=== PATIENT | male | born 1960 | race Asian ===

== ENCOUNTER → 2016-03-05 | Outpatient (CLI) | payer OTHER ==
--- NOTE | 2016-03-05 10:26 | XCELERA REPORT ---
[address] [address] Lower Extremity Arterial Evaluation Name: MIS MCKEON Age: 55 yrs Gender: Male : 1960 Patient Status: Outpatient Patient Location: Study Date: 03/05/2016 08:19 AM Procedure: A color flow and duplex scan of the lower extremity arteries was performed bilaterally with velocity and waveform anaylsis. Ankle brachial indicies performed. Reason For Study: ULCER Ordering Physician: ELPIDIO MARIA Performed By: Tristian Wahl Measurements and Calculations Right Left SAFETY PERSON PSV 161.1 125.7 cm/sec Prox PFA PSV -169.9 -189.7 cm/sec Dist SFA PSV -175.8 -168.4 cm/sec Prox Pop A PSV 145.8 111.6 cm/sec Dist HANG PSV 73.9 83.4 cm/sec Dist SR. OPERATIONS MANAGER PSV 73.9 96.2 cm/sec Fred Pedis PSV 80.8 98.7 cm/sec Right Side Arterial Evaluation Normal velocity, waveform and triphasic flow are present, from the Common Femoral artery to the Popliteal artery. Biphasic in the Deep Femoral. Biphasic in the infrageniculate vessels. The ankle-brachial index is not obtainable,. non compressible vessels. 0-19 % stenosis is noted at the infrageniculate level. Left Side Arterial Evaluation Normal velocity, waveform and triphasic flow are present, from the Common Femoral artery down to the infrageniculate vessels. The ankle-brachial index is 1.17. 0 % stenosis is noted. Interpretation Summary Mild hemodynamically significant lesions in the right lower extremity only, on duplex imaging, at rest. No hemodynamically significant lesions in the left lower extremity only, on duplex imaging, at rest. : ELPIDIO MARIA > Jarred Tirado
--- NOTE | 2016-03-05 10:26 | XCELERA REPORT ---
[address] [address] Lower Extremity Venous Evaluation Name: MIS MCKEON Age: 55 yrs Gender: Male : 1960 Patient Status: Outpatient Patient Location: Study Date: 03/05/2016 08:32 AM Procedure: Color flow and duplex imaging bilaterally of the veins of the lower extremities as well as the Common Femoral veins. Reason For Study: ULCER Ordering Physician: ELPIDIO MARIA Performed By: Tristian Wahl Right Sided Venous Evaluation Normal velocity, waveform and triphasic flow are present, from the Common Femoral artery to the Popliteal artery. Biphasic in the Deep Femoral. Biphasic in the infrageniculate vessels. The ankle-brachial index is not obtainable,. non compressible vessels. 20-49 % stenosis is noted at the infrageniculate level. Left Sided Venous Evaluation Normal velocity, waveform and triphasic flow are present, from the Common Femoral artery down to the infrageniculate vessels. The ankle-brachial index is 1.17. 0 % stenosis is noted. Interpretation Summary : ELPIDIO MARIA > Jarred Tirado
== END ==
LOC: SP 08:01
PROVIDERS: ATTEND Preventive Medicine Undersea and Hyperbaric Medicine
DX: I73.9 Peripheral vascular disease, unspecified (principal); L97.423 Non-pressure chronic ulcer of left heel and midfoot with necrosis of muscle
CPT/HCPCS: 93925; 93970

== ENCOUNTER 2018-12-29 15:27 | Inpatient (IN) | payer SELFPAY ==
--- NOTE | 2018-12-29 15:37 | ER Document Report ---
ED Medical Screen (RME) - General Chief Complaint: High Blood Sugar Stated Complaint: BLOOD SUGAR ISSUES Time Seen by Provider: 12/29/18 15:32 Primary Care Provider: RICARDO FUENTES MD [Primary Care Provider] - Follow up as needed Mode of Arrival: Wheelchair Information source: Relative Notes: 58-year-old male presented to ED for high blood sugar. He went to his primary doctor and his blood sugar was 520. They did send him to the emergency room. Daughter states he has been very thirsty and urinating a lot and very fatigued. Patient does not speak Trinidadian. Patient has been on insulin for 3 days and also takes metformin. He also has high blood pressure. He smokes 5 cigarettes a day he has not drank in 3 years. Daughter states that the doctor's office gave him 20 units of regular insulin some blood pressure medicine. I have greeted and performed a rapid initial assessment of this patient. A comprehensive ED assessment and evaluation of the patient, analysis of test results and completion of medical decision making process will be conducted by an additional ED providers. TRAVEL OUTSIDE OF THE [place] IN LAST 30 DAYS: No - Related Data Allergies/Adverse Reactions: No Known Allergies Allergy (Unverified 10/13/14 20:44) Past Medical History - Past Medical History Cardiac Medical History: Reports: Hx Hypertension Endocrine Medical History: Reports: Hx Diabetes Mellitus Type 2 Psychiatric Medical History: Denies: Hx Depression Doctor's Discharge - Discharge Referrals: RICARDO FUENTES MD [Primary Care Provider] - Follow up as needed
[2018-12-29] MEDS ORDERED: NORMAL SALINE 1000 ML 1,000 ML IV ONE ×2 (15:38→20:05)
[2018-12-29 16:15] LABS: ABSOLUTE BASOPHILS # (AUTO) 0.1 10^3/uL (0.0-0.2); ABSOLUTE EOSINOPHILS # (AUTO) 0.1 10^3/uL (0.0-0.6); ABSOLUTE LYMPHOCYTES (AUTO) 1.1 10^3/uL (0.5-4.7); ABSOLUTE MONOCYTES (AUTO) 0.2 10^3/uL (0.1-1.4); ABSOLUTE NEUT (AUTO) 4.2 10^3/uL (1.7-8.2); EOSINOPHILS % (AUTO) 1.8 % (0-6); HEMATOCRIT 44.4 % (37.9-51.0); HEMOGLOBIN 15.3 g/dL (13.5-17.0); LYMPHOCYTES % (AUTO) 19.6 % (13-45); MEAN CORPUSCULAR HEMOGLOBIN 28.7 pg (27.0-33.4); MEAN CORPUSCULAR HGB CONC 34.5 g/dL (32.0-36.0); MEAN CORPUSCULAR VOLUME 83 fl (80-97); MONOCYTES % (AUTO) 4.1 % (3-13); PLATELET COUNT 228 10^3/uL (150-450); RED BLOOD COUNT 5.33 10^6/uL (4.35-5.55); RED CELL DISTRIBUTION WIDTH 13.6 % (11.5-14.0); SEGMENTED NEUTROPHILS % (AUTO) 73.5 % (42-78); TOTAL CELLS COUNTED % (AUTO) 100 %; WHITE BLOOD COUNT 5.7 10^3/uL (4.0-10.5)
[2018-12-29 16:27] LABS: VENOUS BLOOD BASE EXCESS 1.1 mmol/L; VENOUS BLOOD HCO3 27.7 mmol/L (20-32); VENOUS BLOOD PCO2 51.1 mmHg (35-63); VENOUS BLOOD PH 7.35 (7.30-7.42)
[2018-12-29 16:47] LABS: PHOSPHORUS 3.1 mg/dL (2.5-4.5)
--- NOTE | 2018-12-29 17:16 | RADIOLOGY REPORT (SQ) ---
EXAM DESCRIPTION: CT HEAD WITHOUT COMPLETED DATE/TIME: 12/29/2018 4:41 pm REASON FOR STUDY: recrudence dysarthria hemiparesis COMPARISON: None. TECHNIQUE: Axial images acquired through the brain without intravenous contrast. Images reviewed wi th bone, brain and subdural windows. Additional sagittal and coronal reconstructions were generated. Images stored on PACS. All CT scanners at this facility use dose modulation, iterative reconstruction, and/or weight based d osing when appropriate to reduce radiation dose to as low as reasonably achievable (ALARA). [facility]: Dose Right [facility]: CareDose [facility]: Dose Right [facility]: Teradose 4D [facility]: Smart Cellcrypt RADIATION DOSE: CT Rad equipment meets quality standard of care and radiation dose reduction techniq ues were employed. CTDIvol: 53.2 mGy. DLP: 1097 mGy-cm. mGy. LIMITATIONS: None. FINDINGS: VENTRICLES: Normal size and contour. CEREBRUM: Ill-defined low attenuation in the right posterior internal capsule/posterior basal ganglia worrisome for acute or early subacute infarct. This is best shown on axial images 17-20. No acute hemorrhage. No mass effect or midline shift. CEREBELLUM: No masses. No hemorrhage. No alteration of density. No evidence for acute infarction. EXTRAAXIAL SPACES: No fluid collections. No masses. ORBITS AND GLOBE: No intra- or extraconal masses. Normal contour of globe without masses. CALVARIUM: No fracture. PARANASAL SINUSES: Mucus or serous retention cyst right maxillary sinus. Mucous membrane thickening and debris from sinusitis left maxillary sinus SOFT TISSUES: No mass or hematoma. OTHER: No other significant finding. IMPRESSION: Findings worrisome for acute or early subacute infarct in the right posterior limb inter nal capsule/posterior basal ganglia extending into the hemispheric white matter. Nonhemorrhagic. No mass effect. EVIDENCE OF ACUTE STROKE: YES. COMMENT: Quality ID # [id number]: Final reports with documentation of one or more dose reduction techniques (e.g., Automated exposure control, adjustment of the mA and/or kV according to patient size, use of iterative reconstruction technique) TECHNICAL DOCUMENTATION: JOB ID: [id number] [employer]- All Rights Reserved Reading location - IP/workstation name: [email or web address]
[2018-12-29] MEDS ORDERED: ASPIRIN 81 MG TABLET, CHEWABLE ONE (17:17)
--- NOTE | 2018-12-29 17:20 | RADIOLOGY REPORT (SQ) ---
EXAM DESCRIPTION: CHEST 2 VIEWS COMPLETED DATE/TIME: 12/29/2018 4:52 pm REASON FOR STUDY: h/o aspiration COMPARISON: 02/09/2016 EXAM PARAMETERS: NUMBER OF VIEWS: two views TECHNIQUE: Digital Frontal and Lateral radiographic views of the chest acquired. RADIATION DOSE: NA LIMITATIONS: none FINDINGS: LUNGS AND PLEURA: No opacities, masses or pneumothorax. No pleural effusion. MEDIASTINUM AND HILAR STRUCTURES: No masses or contour abnormalities. HEART AND VASCULAR STRUCTURES: Heart normal size. No evidence for failure. BONES: No acute findings. HARDWARE: None in the chest. OTHER: No other significant finding. IMPRESSION: No evidence of acute cardiopulmonary process. TECHNICAL DOCUMENTATION: JOB ID: [id number] [employer]- All Rights Reserved Reading location - IP/workstation name: [email or web address]
[2018-12-29 17:35] LABS: ALBUMIN 3.7 g/dL (3.5-5.0); ALKALINE PHOSPHATASE 100 U/L (38-126); ANION GAP 10 (5-19); ASPARTATE AMINO TRANSFERASE 18 U/L (17-59); BILIRUBIN,DIRECT 0.1 mg/dL (0.0-0.4); BILIRUBIN,TOTAL 0.5 mg/dL (0.2-1.3); BLOOD UREA NITROGEN 19 mg/dL (7-20); CALCIUM 9.4 mg/dL (8.4-10.2); CARBON DIOXIDE 23 mmol/L (22-30); CHLORIDE 103 mmol/L (98-107); GLUCOSE 364 mg/dL (75-110); TOTAL PROTEIN 6.6 g/dL (6.3-8.2)
[2018-12-29] MEDS ORDERED: ASPIRIN 81 MG TABLET, CHEWABLE PO ONE (18:01)
[2018-12-29] MEDS ORDERED: DEXTROSE 50%-WATER 25 GM/50 ML DISP.SYRIN IV PRN ×2 (20:05)
[2018-12-29] MEDS ORDERED: ATORVASTATIN CALCIUM 80 MG TABLET PO ONE (20:05)
[2018-12-29] MEDS ORDERED: GLUCAGON,HUMAN RECOMB 1 MG INJ IM PRN (20:05)
[2018-12-29] MEDS ORDERED: DEXTROSE 40% GEL 15 GM TUBE PO PRN ×2 (20:05)
[2018-12-29] MEDS ORDERED: ACETAMINOPHEN 325 MG TABLET PO PRN (20:06)
[2018-12-29] MEDS ORDERED: MAGNESIUM HYDROXIDE SUSP 30 ML UDCUP PO PRN (20:06)
[2018-12-29] MEDS ORDERED: DOCUSATE SODIUM 100 MG CAPSULE PO PRN (20:06)
--- NOTE | 2018-12-29 20:06 | ER Document Report ---
ED General - General Chief Complaint: High Blood Sugar Stated Complaint: BLOOD SUGAR ISSUES Time Seen by Provider: 12/29/18 15:32 Primary Care Provider: RICARDO FUENTES MD [Primary Care Provider] - Follow up as needed Mode of Arrival: Wheelchair TRAVEL OUTSIDE OF THE [place] IN LAST 30 DAYS: No - Related Data Allergies/Adverse Reactions: No Known Allergies Allergy (Unverified 10/13/14 20:44) Past Medical History - General Information source: Relative - Social History Smoking Status: Unknown if Ever Smoked Family History: Reviewed & Not Pertinent Patient has suicidal ideation: No Patient has homicidal ideation: No - Past Medical History Cardiac Medical History: Reports: Hx Hypertension Endocrine Medical History: Reports: Hx Diabetes Mellitus Type 2 Psychiatric Medical History: Denies: Hx Depression Physical Exam - Vital signs Vitals: Temp Pulse Resp BP Pulse Ox 97.3 F 109 H 16 139/74 H 98 12/29/18 15:30 12/29/18 15:30 12/29/18 15:30 12/29/18 15:30 12/29/18 15:30 Course - Vital Signs Vital signs: Temp Pulse Resp BP Pulse Ox 97.5 F 109 H 16 103/53 L 97 12/29/18 18:30 12/29/18 15:30 12/29/18 19:45 12/29/18 19:45 12/29/18 19:45 - Laboratory Result Diagrams: 12/29/18 16:00 12/29/18 16:00 Laboratory results interpreted by me: 12/29/18 12/29/18 12/29/18 15:56 16:00 16:00 Sodium 136.0 L Creatinine 1.35 H Est GFR (MDRD) Non-Af 55 L Glucose 364 H POC Glucose 398 H Magnesium 2.6 H 12/29/18 18:19 Sodium Creatinine Est GFR (MDRD) Non-Af Glucose POC Glucose 156 H Magnesium Discharge - Discharge Clinical Impression: Hyperglycemia Stroke Qualifiers: CVA mechanism: unspecified Qualified Code(s): I63.9 - Cerebral infarction, unspecified Disposition: ADMITTED INPATIENT Admitting Provider: Rudy (Hospitalist) Unit Admitted: IMCU Referrals: RICARDO FUENTES MD [Primary Care Provider] - Follow up as needed
[2018-12-30] MEDS ORDERED: INFLUENZA QUAD (6MOS+) 2019-20 VAC 0.5 ML SYR IM ONE (02:10)
[2018-12-30 04:06] LABS: APPEARANCE,URINE CLEAR; BILIRUBIN,URINE NEGATIVE (NEGATIVE); COLOR,URINE YELLOW; GLUCOSE, URINE >=500 mg/dL (NEGATIVE); KETONES,URINE TRACE mg/dL (NEGATIVE); LEUKOCYTE ESTERASE,URINE NEGATIVE (NEGATIVE); NITRITE,URINE NEGATIVE (NEGATIVE); PROTEIN,URINE >=500 mg/dL (NEGATIVE); URINE SPECIFIC GRAVITY 1.029; UROBILINOGEN,URINE NEGATIVE mg/dL (<2.0)
--- NOTE | 2018-12-30 04:26 | PDOC H&P ---
History of Present Illness Admission Date/PCP: 12/29/18 20:20 RICARDO FUENTES MD Patient complains of: Right-sided weakness and cough History of Present Illness: MIS MCKEON is a 58 year old mandrin German speaking male with a past medical history of diabetes, hypertension, dyslipidemia and CVA with residual left-sided weakness. He presents with over 12 hours of increased left-sided weakness from baseline and a cough while eating or drinking. Patient's daughter is at bedside who translates and verifies he is essentially bedbound over the last 2 years able to transfer from bed to commode with baseline debility. No recent change in medications, palpitations nausea or vomiting but has had several days of headache. Past Medical History Cardiac Medical History: Reports: Hyperlipidema, Hypertension Neurological Medical History: Reports: Ischemic CVA Endocrine Medical History: Reports: Diabetes Mellitus Type 2 Psychiatric Medical History: Reports: Tobacco Dependency Denies: Depression Social History Information Source: Patient, Relative, [facility] Records Smoking Status: Current Every Day Smoker Frequency of Alcohol Use: Rare Hx Recreational Drug Use: No Hx Prescription Drug Abuse: No - Advance Directive Resuscitation Status: Full Code Family History Family History: CAD Parental Family History Reviewed: Yes Children Family History Reviewed: Yes Sibling(s) Family History Reviewed.: Yes Medication/Allergy Home Medications: Dapagliflozin Propanediol [Farxiga] 5 mg PO DAILY 12/29/18 Gabapentin [Neurontin 100 mg Capsule] 100 mg PO Q8 12/29/18 Hum Insulin NPH/Reg Insulin Hm [Insulin Inj 70-30 (100 Unit/1 ml) 3 ml Vial] 0 unit SUBCUT .SLIDING SCALE 12/29/18 Levothyroxine Sodium [Synthroid 0.075 mg Tablet] 0.075 mg PO Q6AM 12/29/18 Allergies/Adverse Reactions: No Known Allergies Allergy (Unverified 10/13/14 20:44) Review of Systems Constitutional: ABSENT: chills, fever(s), headache(s), weight gain, weight loss Eyes: ABSENT: visual disturbances Ears: ABSENT: hearing changes Cardiovascular: ABSENT: chest pain, dyspnea on exertion, edema, orthropnea, palpitations Respiratory: ABSENT: cough, hemoptysis Gastrointestinal: ABSENT: abdominal pain, constipation, diarrhea, hematemesis, hematochezia, nausea, vomiting Genitourinary: ABSENT: dysuria, hematuria Musculoskeletal: ABSENT: joint swelling Integumentary: ABSENT: rash, wounds Neurological: ABSENT: abnormal gait, abnormal speech, confusion, dizziness, focal weakness, syncope Psychiatric: ABSENT: anxiety, depression, homidical ideation, suicidal ideation Endocrine: ABSENT: cold intolerance, heat intolerance, polydipsia, polyuria Hematologic/Lymphatic: ABSENT: easy bleeding, easy bruising Physical Exam Vital Signs: Temp Pulse Resp BP Pulse Ox 97.5 F 64 16 167/75 H 97 12/30/18 03:44 12/30/18 03:44 12/30/18 03:44 12/30/18 03:44 12/30/18 03:44 Intake & Output 12/28/18 12/29/18 12/30/18 11:59 11:59 11:59 Intake Total 1999 Balance 1999 Weight 83.915 kg General appearance: PRESENT: cooperative, severe distress, well-developed, well- nourished Head exam: PRESENT: atraumatic, normocephalic Eye exam: PRESENT: conjunctiva pink, EOMI, PERRLA. ABSENT: scleral icterus Ear exam: PRESENT: normal external ear exam Mouth exam: PRESENT: moist, tongue midline Neck exam: ABSENT: carotid bruit, JVD, lymphadenopathy, thyromegaly Respiratory exam: PRESENT: crackles, decreased breath sounds Cardiovascular exam: PRESENT: RRR. ABSENT: diastolic murmur, rubs, systolic murmur Pulses: PRESENT: normal dorsalis pedis pul Vascular exam: PRESENT: normal capillary refill GI/Abdominal exam: PRESENT: normal bowel sounds, soft. ABSENT: distended, guarding, mass, organolmegaly, rebound, tenderness Rectal exam: PRESENT: deferred Extremities exam: PRESENT: full ROM, other - Chronic change of peripheral vascular disease. ABSENT: calf tenderness, clubbing, pedal edema Musculoskeletal exam: PRESENT: other - Left-sided 4 out of 5 strength Neurological exam: PRESENT: alert, awake, oriented to person, oriented to place, CN II-XII grossly intact Psychiatric exam: PRESENT: appropriate affect, normal mood. ABSENT: homicidal ideation, suicidal ideation Skin exam: PRESENT: dry, intact, warm. ABSENT: cyanosis, rash Results Laboratory Results: 12/29/18 16:00 12/29/18 16:00 12/29/18 12/29/18 12/29/18 16:00 16:00 16:00 WBC 5.7 RBC 5.33 Hgb 15.3 Hct 44.4 MCV 83 MCH 28.7 MCHC 34.5 RDW 13.6 Plt Count 228 Seg Neutrophils % 73.5 VBG pH 7.35 VBG pCO2 51.1 VBG HCO3 27.7 VBG Base Excess 1.1 Sodium 136.0 L Potassium 4.0 Chloride 103 Carbon Dioxide 23 Anion Gap 10 BUN 19 Creatinine 1.35 H Est GFR ( Amer) > 60 Glucose 364 H Calcium 9.4 Phosphorus Magnesium Total Bilirubin 0.5 AST 18 Alkaline Phosphatase 100 Total Protein 6.6 Albumin 3.7 Urine Color Urine Appearance Urine pH Ur Specific [place] Urine Protein Urine Glucose (UA) Urine Ketones Urine Blood Urine Nitrite Ur Leukocyte Esterase Urine WBC (Auto) Urine RBC (Auto) 12/29/18 12/30/18 16:00 03:45 WBC RBC Hgb Hct MCV MCH MCHC RDW Plt Count Seg Neutrophils % VBG pH VBG pCO2 VBG HCO3 VBG Base Excess Sodium Potassium Chloride Carbon Dioxide Anion Gap BUN Creatinine Est GFR ( Amer) Glucose Calcium Phosphorus 3.1 Magnesium 2.6 H Total Bilirubin AST Alkaline Phosphatase Total Protein Albumin Urine Color YELLOW Urine Appearance CLEAR Urine pH 5.0 Ur Specific [place] 1.029 Urine Protein >=500 H Urine Glucose (UA) >=500 H Urine Ketones TRACE H Urine Blood MODERATE H Urine Nitrite NEGATIVE Ur Leukocyte Esterase NEGATIVE Urine WBC (Auto) 3 Urine RBC (Auto) 4 12/29/18 12/29/18 16:00 19:30 Troponin I < 0.012 0.014 Impressions: Chest X-Ray 12/29/18 16:21 IMPRESSION: No evidence of acute cardiopulmonary process. Head CT 12/29/18 16:23 IMPRESSION: Findings worrisome for acute or early subacute infarct in the right posterior limb internal capsule/posterior basal ganglia extending into the hemispheric white matter. Nonhemorrhagic. No mass effect. EVIDENCE OF ACUTE STROKE: YES. Assessment and Plan - Diagnosis (1) Stroke Qualifiers: CVA mechanism: unspecified Qualified Code(s): I63.9 - Cerebral infarction, unspecified Is this a current diagnosis for this admission?: Yes Plan: CVA care set deployed complicated by unsafe swallow, follow-up MRI, carotid Doppler, 2D echo, lipid profile. Speech, physical therapy (2) Hyperglycemia Is this a current diagnosis for this admission?: Yes Plan: Unclear glycemic control, follow-up A1c, Humalog sliding scale ordered while n.p.o. (3) Dyslipidemia Is this a current diagnosis for this admission?: Yes Plan: Follow-up lipid profile, statin when safely swallowing (4) Tobacco abuse Is this a current diagnosis for this admission?: Yes Plan: Nicotine patch PRN - Time Time Spent with patient: 25-34 minutes - Inpatient Certification Medical Necessity: Need Close Monitoring Due to Risk of Patient Decompensation
[2018-12-30 05:07] LABS: TRIGLYCERIDES 410 mg/dL (<150)
[2018-12-30 05:17] LABS: CHOLESTEROL 433.51 mg/dL (0-200); DIRECT LDL 202 mg/dL (<100)
[2018-12-30] MEDS: HEPARIN SOD (PORCINE) 5,000 UNIT/ML 1 ML VIAL SUBCUT SCH ×4 (07:36→22:46)
--- NOTE | 2018-12-30 08:16 | RADIOLOGY REPORT (SQ) ---
EXAM DESCRIPTION: CAROTID DOPPLER COMPLETED DATE/TIME: 12/29/2018 9:41 pm REASON FOR STUDY: cva COMPARISON: None. TECHNIQUE: Grayscale ultrasound, Doppler velocity and spectra, and color Doppler images acquired of the extra-cranial carotid and vertebral arteries. Images stored on PACS. LIMITATIONS: None. FINDINGS: RIGHT CAROTID CCA Velocities: Within normal limits. ICA Velocities Peak systolic 62 cm/s. End diastolic 17 cm /s. Proximal ICA/CCA peak systolic ratio 1.0. Minimal soft plaque. LEFT CAROTID CCA Velocities: Within normal limits. ICA Velocities Peak systolic 64 cm/s. End diastolic 21 cm/s. Proximal ICA/CCA peak systolic ratio 0.8. Minimal soft plaque. VERTEBRAL ARTERIES: Antegrade flow. Normal waveforms. SUBCLAVIAN ARTERIES: No finding. OTHER: No other significant finding. IMPRESSION: NO HEMODYNAMICALLY SIGNIFICANT STENOSIS. COMMENT: Quality ID #[id number]: Velocity criteria are extrapolated from the diameter data as defined by t he Society of Radiologists in Ultrasound Consensus Conference. Radiology 2003: 229; 340-346. TECHNICAL DOCUMENTATION: JOB ID: [id number] [employer]- All Rights Reserved Reading location - IP/workstation name: [email or web address]
--- NOTE | 2018-12-30 08:18 | RADIOLOGY REPORT (SQ) ---
EXAM DESCRIPTION: MRI HEAD WITHOUT COMPLETED DATE/TIME: 12/29/2018 11:05 pm REASON FOR STUDY: cva COMPARISON: CT brain, 12/29/2018 TECHNIQUE: Multiplanar imaging includes non-contrasted T1, T2, FLAIR, and diffusion with ADC map seq uences. Images stored on PACS. LIMITATIONS: Motion artifact. FINDINGS: ANATOMY: No anomalies. Normal vascular flow voids. Pituitary fossa normal. CSF SPACES: Normal in size and contour. No hemorrhage. CEREBRUM: Sulci and gyri normal in size and contour. Normal white matter signal on FLAIR imaging. No evidence of hemorrhage, mass, or extraaxial fluid collection. POSTERIOR FOSSA: No signal alteration. No hemorrhage. No edema, masses or mass effect. Internal danielle tory canals, cerebello-pontine angles, mastoids normal. DIFFUSION IMAGING: There is an acute diffusion restricting infarction of the posterior right basal ga nglia involving the posterior limb of the right internal capsule and adjacent morales radiata (series 4, image 15). There may be an additional small subacute infarction of the right frontal morales radia ta more anteriorly (series 4, image 20). ORBITS: No masses. Globes normal. PARANASAL SINUSES: No fluid levels. Mucosa normal. OTHER: No other significant finding. IMPRESSION: 1. There is an acute diffusion restricting infarction of the posterior right basal gangl ia involving the posterior limb of the right internal capsule and adjacent morales radiata (series 4, image 15). There may be an additional small subacute infarction of the right frontal morales radiata m ore anteriorly (series 4, image 20). 2. Examination is generally somewhat limited by patient motion artifact EVIDENCE OF ACUTE STROKE: YES. TECHNICAL DOCUMENTATION: JOB ID: [id number] [employer]- All Rights Reserved Reading location - IP/workstation name: [email or web address]
[2018-12-30] MEDS: INSULIN LISPRO 100 UNIT/ML 3 ML VIAL SUBCUT SCH ×3 (08:44→16:17)
[2018-12-30] MEDS ORDERED: ASPIRIN 300 MG SUPP, RECTAL PR SCH (10:00)
[2018-12-30] MEDS: ASPIRIN 81 MG TABLET, ENT COATED PO SCH (11:47)
--- NOTE | 2018-12-30 11:59 | XCELERA REPORT ---
[address] [address] Transthoracic Echocardiogram Report Name: MIS MCKEON Age: 58 yrs Gender: Male : 1960 Patient Status: Emergency Patient Location: [place] [address]^A Study Date: 12/29/2018 08:28 PM Height: 70 in Weight: 185 lb BSA: 2.0 m2 Procedure: A two-dimensional transthoracic echocardiogram with color flow and Doppler was performed. The study was technically limited with all images being suboptimal in quality. Reason For Study: cva History: CVA. Ordering Physician: RICARDO DAVIS Performed By: Paulette Cortes Interpretation Summary There is no obvious cardiac source of embolus noted on this transthoracic echocardiogram. Follow-up with a BERNABE is suggested if cardiac source is still suspected. The left ventricle is normal in size. There is normal left ventricular wall thickness. LV EF is 50% Left ventricular systolic function is mildly reduced. Doppler measurements suggest impaired left ventricular relaxation, which is associated with grade I/IV or mild diastolic dysfunction There is mild global hypokinesis of the left ventricle. There is no thrombus. cannot comment on ASD ,VSD , or PFO. The right atrium is normal. The left atrial size is normal. There is no evidence of mitral valve prolapse. There is no vegetation seen on the mitral valve. There is no mitral valve stenosis. There is a trace amount of mitral regurgitation There is no aortic valvular vegetation. There is no aortic valve stenosis There is no LVOT obstruction. No aortic regurgitation is present. There is no tricuspid stenosis. There is a trace amount of tricuspid regurgitation Right ventricular systolic pressure is normal. RVSp is 28 mm of Hg , with RA mean of 10. There is no pulmonic valvular stenosis. There is a trace amount of pulmonic regurgitation The aortic root is normal size. The inferior vena cava was not visualized There is no pericardial effusion. There is no obvious cardiac source of embolus noted on this transthoracic echocardiogram. Follow-up with a BERNABE is suggested if cardiac source is still suspected MMode/2D Measurements & Calculations RVDd: 2.4 cm LVIDd: 4.5 cm FS: 25.1 % Ao root diam: 3.0 cm IVSd: 1.3 cm LVIDs: 3.4 cm EDV(Teich): Ao root area: LVPWd: 1.3 cm 93.6 ml 7.3 cm2 ESV(Teich): LA dimension: 3.8 cm 47.0 ml EF(Teich): 49.8 % LVLd ap4: 7.0 cm SV(MOD-sp4): EDV(MOD-sp4): 31.0 ml 56.0 ml LVLs ap4: 6.5 cm ESV(MOD-sp4): 25.0 ml EF(MOD-sp4): 55.4 % Doppler Measurements & Calculations MV E max katlyn: MV P1/2t max katlyn: Ao V2 max: LV V1 max P.8 cm/sec 59.2 cm/sec 100.1 cm/sec 2.8 mmHg MV A max katlyn: MV P1/2t: 62.7 msec Ao max PG: LV V1 max: 65.1 cm/sec MVA(P1/2t): 3.5 cm2 4.0 mmHg 84.3 cm/sec MV E/A: 0.83 MV dec slope: 276.5 cm/sec2 MV dec time: 0.21 sec PA V2 max: PI end-d katlyn: TR max katlyn: MV P1/2t-pr_phl: 107.2 cm/sec 100.4 cm/sec 211.8 cm/sec 62.7 msec PA max PG: TR max P.6 mmHg 17.9 mmHg Left Ventricle The left ventricle is normal in size. There is normal left ventricular wall thickness. LV EF is 50%. Left ventricular systolic function is mildly reduced. Doppler measurements suggest impaired left ventricular relaxation, which is associated with grade I/IV or mild diastolic dysfunction. There is mild global hypokinesis of the left ventricle. There is no thrombus. cannot comment on ASD ,VSD , or PFO. Right Ventricle The right ventricle is grossly normal size. The right ventricle is not well visualized secondary to technical limitations. Atria The right atrium is normal. The left atrial size is normal. Mitral Valve There is no evidence of mitral valve prolapse. There is no vegetation seen on the mitral valve. There is no mitral valve stenosis. There is a trace amount of mitral regurgitation. Aortic Valve There is no aortic valvular vegetation. There is no aortic valve stenosis. There is no LVOT obstruction. No aortic regurgitation is present. Tricuspid Valve There is no tricuspid stenosis. There is a trace amount of tricuspid regurgitation. Right ventricular systolic pressure is normal. RVSp is 28 mm of Hg , with RA mean of 10. Pulmonic Valve There is no pulmonic valvular stenosis. There is a trace amount of pulmonic regurgitation. Great Vessels The aortic root is normal size. The inferior vena cava was not visualized. Effusions There is no pericardial effusion. : RICARDO DAVIS Lakshmi
[2018-12-30] MEDS: GABAPENTIN 100 MG CAPSULE PO SCH ×2 (13:40→22:46)
[2018-12-30] MEDS ORDERED: NORMAL SALINE 1000 ML 1,000 ML IV PRN (19:36)
[2018-12-30] MEDS ORDERED: CARBOXYMETHYLCELLULOSE SOD 0.5% 0.4 ML DROPERETTE OU PRN (19:37)
--- NOTE | 2018-12-30 19:46 | PDOC PROGRESS REPORT ---
Subjective Progress Note for:: 12/30/18 Subjective:: MIS MCKEON is a 58 year old mandrin Cook Islander speaking male with a past medical history of diabetes, hypertension, dyslipidemia and CVA with residual left-sided weakness admitted 12/29/2018 for acute right basal ganglia CVA with increased left-sided weakness, fatigue, and blurred vision. Patient was seen on evening rounds with son present utilizing [employer] for translating services. Patient's only complaint today is blurred vision Related to dry eyes; typically uses eyedrops at home. He also reports dizziness upon standing but none when lying down. Long discussion had with son regarding plan for a MBSS tomorrow and continued therapy services to determine disposition. Patient may benefit from acute rehab services as he was able to ambulate approximately 100 m utilizing a cane only prior to admission. Patient otherwise denies fever, chills, headache, chest pain, palpitations, dyspnea, abdominal pain, nausea vomiting diarrhea. All questions and concerns addressed. No concerns per nursing. Reason For Visit: CVA Physical Exam Vital Signs: Temp Pulse Resp BP Pulse Ox 98.6 F 75 17 195/85 H 98 12/30/18 15:35 12/30/18 16:00 12/30/18 16:00 12/30/18 16:00 12/30/18 16:00 Intake & Output 12/29/18 12/30/18 12/31/18 06:59 06:59 06:59 Intake Total 2000 720 Output Total 325 Balance 1675 720 Weight 79.7 kg General appearance: PRESENT: no acute distress, cooperative, well-developed, well-nourished - Overweight Head exam: PRESENT: atraumatic, normocephalic Eye exam: PRESENT: conjunctival injection, EOMI, PERRLA. ABSENT: scleral icterus Ear exam: PRESENT: normal external ear exam Mouth exam: PRESENT: moist, tongue midline Neck exam: ABSENT: carotid bruit, JVD, lymphadenopathy, thyromegaly Respiratory exam: PRESENT: clear to auscultation shivani, symmetrical, unlabored. ABSENT: rales, rhonchi, wheezes Cardiovascular exam: PRESENT: RRR, +S1, +S2. ABSENT: diastolic murmur, rubs, systolic murmur Pulses: PRESENT: normal dorsalis pedis pul Vascular exam: PRESENT: normal capillary refill GI/Abdominal exam: PRESENT: normal bowel sounds, soft. ABSENT: distended, guarding, mass, organolmegaly, rebound, tenderness Rectal exam: PRESENT: deferred Extremities exam: PRESENT: other - Left-sided weakness. ABSENT: calf tenderness, clubbing, pedal edema Neurological exam: PRESENT: alert, awake, oriented to person, oriented to place, oriented to time, oriented to situation, CN II-XII grossly intact, other - Exam per translating services utilizing [employer]; no indication that the patient is not oriented at this time. He is noted to be quite fatigued and defers to his son for most questions. Does continue to have left-sided weakness.. ABSENT: motor sensory deficit Psychiatric exam: PRESENT: appropriate affect, normal mood. ABSENT: homicidal ideation, suicidal ideation Skin exam: PRESENT: dry, intact, warm. ABSENT: cyanosis, rash Results Laboratory Results: 12/29/18 16:00 12/29/18 16:00 12/30/18 12/30/18 03:45 04:07 Triglycerides 410 H Cholesterol 433.51 H LDL Cholesterol Direct 202 H HDL Cholesterol 29 L Urine Color YELLOW Urine Appearance CLEAR Urine pH 5.0 Ur Specific [place] 1.029 Urine Protein >=500 H Urine Glucose (UA) >=500 H Urine Ketones TRACE H Urine Blood MODERATE H Urine Nitrite NEGATIVE Ur Leukocyte Esterase NEGATIVE Urine WBC (Auto) 3 Urine RBC (Auto) 4 12/29/18 12/29/18 16:00 19:30 Troponin I < 0.012 0.014 Impressions: Head MRI 12/29/18 00:00 IMPRESSION: 1. There is an acute diffusion restricting infarction of the posterior right basal ganglia involving the posterior limb of the right internal capsule and adjacent morales radiata (series 4, image 15). There may be an additional small subacute infarction of the right frontal morales radiata more anteriorly (series 4, image 20). 2. Examination is generally somewhat limited by patient motion artifact EVIDENCE OF ACUTE STROKE: YES. Chest X-Ray 12/29/18 16:21 IMPRESSION: No evidence of acute cardiopulmonary process. Head CT 12/29/18 16:23 IMPRESSION: Findings worrisome for acute or early subacute infarct in the right posterior limb internal capsule/posterior basal ganglia extending into the h emispheric white matter. Nonhemorrhagic. No mass effect. EVIDENCE OF ACUTE STROKE: YES. Carotid Doppler Study 12/29/18 20:07 IMPRESSION: NO HEMODYNAMICALLY SIGNIFICANT STENOSIS. Assessment and Plan - Diagnosis (1) Stroke Qualifiers: CVA mechanism: unspecified Qualified Code(s): I63.9 - Cerebral infarction, unspecified Is this a current diagnosis for this admission?: Yes Plan: MRI confirms right basal ganglia acute CVA. CT demonstrated the above. Carotid Doppler is negative for hemodynamically significant stenosis. Echocardiogram Revealed LVEF of 50%, mild diastolic dysfunction, and no obvious cardiac source of embolus. Patient remains in normal sinus rhythm on telemetry. Continue atorvastatin 80 mg. Continue daily aspirin and Plavix therapy. Blood pressure control; now > than 24 hours post-CVA, will start low-dose lisinopril. Increase diabetic glucose control. PT/OT/ST consulted. Discharge planning consulted. We will discuss with discharge planning recommendations for acute rehabilitation services. (2) Hyperglycemia Is this a current diagnosis for this admission?: Yes Plan: A1c is 10.6%. Consistent carb diet. Continue home dose Farxiga. Accu-Cheks before meals and at bedtime with Humalog for sliding scale coverage. Hypoglycemia protocol in place. (3) Dyslipidemia Is this a current diagnosis for this admission?: Yes Plan: Lipid panel shows HDL 29, LDL 202, triglycerides 410, total cholesterol 433. Continue atorvastatin 80 mg daily. (4) Tobacco abuse Is this a current diagnosis for this admission?: Yes Plan: Nicotine patch PRN - Time Time Spent with patient: 35 or more minutes Medications reviewed and adjusted accordingly: Yes Anticipated discharge: Acute Rehab Within: within 48 hours
[2018-12-30] MEDS ORDERED: INSULIN GLARGINE,HUM.REC.ANLOG 1,000 UNIT/10 ML VIAL (PYX) SUBCUT ONE (22:30)
[2018-12-30] MEDS: ATORVASTATIN CALCIUM 80 MG TABLET PO SCH (22:46)
--- NOTE | 2018-12-30 23:40 | EKG REPORT ---
SEVERITY:- ABNORMAL ECG - SINUS RHYTHM PROBABLE LEFT ATRIAL ABNORMALITY ST ELEVATION, PROBABLE ANTERIOR INJURY vs LVH : Confirmed by: Ridge Casas 30-Dec-2018 23:39:08
--- NOTE | 2018-12-30 23:40 | EKG REPORT ---
SEVERITY:- ABNORMAL ECG - SINUS RHYTHM LEFT ATRIAL ABNORMALITY RIGHT AXIS DEVIATION REPOL ABNRM SUGGESTS ISCHEMIA, LATERAL LEADS MINIMAL ST ELEVATION, ANTERIOR LEADS : Confirmed by: Ridge Casas 30-Dec-2018 23:39:27
--- NOTE | 2018-12-30 23:40 | EKG REPORT ---
SEVERITY:- ABNORMAL ECG - SINUS RHYTHM PROBABLE LEFT ATRIAL ABNORMALITY NONSPECIFIC INTRAVENTRICULAR CONDUCTION DELAY LVH WITH SECONDARY REPOLARIZATION ABNORMALITY ANTERIOR INJURY, EARLY ACUTE INFARCT VS LVH RELATED : Confirmed by: Ridge Casas 30-Dec-2018 23:40:08
[2018-12-31] MEDS: LEVOTHYROXINE SODIUM 0.075 MG TABLET PO SCH (06:00)
[2018-12-31] MEDS: GABAPENTIN 100 MG CAPSULE PO SCH ×3 (06:00→21:26)
[2018-12-31] MEDS: HEPARIN SOD (PORCINE) 5,000 UNIT/ML 1 ML VIAL SUBCUT SCH ×3 (06:00→21:26)
[2018-12-31] MEDS: INSULIN LISPRO 100 UNIT/ML 3 ML VIAL SUBCUT SCH ×3 (08:30→17:39)
[2018-12-31] MEDS ORDERED: BISACODYL 10 MG SUPP.RECT PR ONE (09:00)
[2018-12-31] MEDS ORDERED: (PENDING PHARMACY ID) (Dapagliflozin Propanediol [Farxiga] 5 MG) PO SCH (10:00)
[2018-12-31] MEDS ORDERED: LISINOPRIL 10 MG TABLET PO SCH (10:00)
[2018-12-31] MEDS: ASPIRIN 81 MG TABLET, ENT COATED PO SCH (10:26)
[2018-12-31] MEDS: CLOPIDOGREL BISULFATE 75 MG TABLET PO SCH (10:27)
--- NOTE | 2018-12-31 10:29 | RADIOLOGY REPORT (SQ) ---
EXAM DESCRIPTION: KANDIS SWALLOW COMPLETED DATE/TIME: 12/31/2018 10:07 am REASON FOR STUDY: coughing with PO, CVA COMPARISON: None. TECHNIQUE: Videofluoroscopic swallowing examination was performed in conjunction with speech patholo gy. Videofluoroscopic imaging was obtained and reviewed and these are the findings: RADIATION DOSE: Fluoro time 2.09 minutes 1 images saved to PACS. LIMITATIONS: None FINDINGS: The patient was brought into the fluoro room and placed upright on a modified barium swall ow chair. The patient was then given multiple consistencies mixed with barium to swallow under live fluoroscopic video guidance. According to the Speech Pathologist there was vinay aspiration seen wit h thin and nectar thick consistencies. Honey thick, pureed and solids appear to be swallowed without incident. Please refer to the speech pathology report for further details. IMPRESSION: VINAY ASPIRATION SEEN WITH THIN AND NECTAR THICK CONSISTENCIES. PLEASE SEE SPEECH PATHOL OGIST REPORT FOR OTHER FINDINGS AND RECOMMENDATIONS. COMMENT: None Quality ID [id number]: Final reports for procedures using fluoroscopy that document radiation exposure william lv, or exposure time and number of fluorographic images (if radiation exposure indices are not avail able) TECHNICAL DOCUMENTATION: JOB ID: [id number] [employer]- All Rights Reserved Reading location - IP/workstation name: [email or web address] [id number]
[2018-12-31] MEDS: MAGNESIUM HYDROXIDE SUSP 30 ML UDCUP PO PRN (10:30)
--- NOTE | 2018-12-31 10:54 | PDOC CONSULTATION ---
Consultation-Blank Consultation: Physical Medicine & Rehabilitation Progress Note Consultation request received an appreciated. Chart reviewed. 58-year-old right-handed male with history of prior CVA and residual left-sided weakness admitted [facility] on 12/29/2018 after presenting with increased left-sided weakness and being found to have a right basal ganglia CVA on MRI of the brain. He was admitted for stroke workup and found to have severely uncontrolled diabetes mellitus and hyperlipidemia. He is now on dual antiplatelet therapy and a statin for secondary stroke prophylaxis, and his hyperglycemia is being managed by Internal Medicine. He was evaluated by acute care physical therapy and occupational therapy, and he currently requires moderate assistance of 2 people for bed mobility and transfers as well as dependent assistance for upper and lower body dressing. He lives at home with his family. At this point, a recommendation cannot be made regarding the most appropriate postacute care rehabilitation setting. The patient will need to demonstrate increased tolerance and progress in acute care therapy before being considered for acute inpatient rehabilitation. We will continue to follow the patient's progress to make a final recommendation.
--- NOTE | 2018-12-31 11:32 | ST Inp Modified Barium Swallow ---
Medical Diagnosis - Medical Diagnoses Medical Diagnosis Description & ICD-10 Code(s): stroke - ICD-10 Tx Diagnosis Coding (1) Dysphagia ICD-10 Code(s): R13.10 - DYSPHAGIA, UNSPECIFIED (2) Pharyngeal dysphagia ICD-10 Code(s): R13.13 - DYSPHAGIA, PHARYNGEAL PHASE ST [place] [facility] [place] General Date: 12/31/18 Date of Onset: 12/29/18 - hospital admission - History -: Medical - per EMR: patient admitted 12/29 with weakness and cough. Patient reportedly had increased left side weakness for 12 hours, as well as coughing when eating and drinking. Prior medical history includes diabetes, hypertension, dyslipidemia, CVA with residual left side weakness. Spoke with patient and family via [employer] as patient is Mandarin speaking. They report that coughing has been ongoing for "more than half a year". Patient initially reports that it happends with everything he eats, then qualified this that he seems to cough more on water and liquids. No diet changes reported. At bedside, patient demonstrated overt signs of aspiration with thin liquids, reduced with nectar liquids. Diet change recommendations were made for nectar liquids and puree solids. Medications: Medications Reviewed Allergies: No known allergies - Subjective Current Nutritional Means: PO Current PO Diet: Pureed, Thickened liquids - nectar Current Symptoms: Coughing Pain: Patient reports, 0/5 - Objective Assessment: Upright, Left Lateral Case Management: Patient is Mandarin speaking, [employer] used to explain test and results. - Food Trials Food Trials Used: Thin liquids, Honey-thickened liquids, [place] thick liquids, Pureed, Soft solids The Patient: Required Assist - Assessment Labial Function: Impaired Lingual Function: Within Functional Limits Dentition: Edentulous Velo-Pharyngeal Function: Unremarkable Laryngeal Function: clear voicing - Pharyngeal Stage Initiation of Pharyngeal Stage: Delayed - swallow triggered with bolus in valleculae and pyriform. Decreased Laryngeal Elevation: Yes Reduced Velo-Pharyngeal Closure: no Reduced Pressure Generation: No Reduced Tongue Base Retraction: Yes Pre-Swallowing Pooling in Valleculae: Significant Pre-Swallowing Pooling in Pyriforms: Moderate Reduced Thyro-Hyiod Approximation: Yes Reduced Epiglottic Excursion: No Reduced Pharyngeal Peristalsis: No Post Swallow Residuals: throughout pharynx Pahryngeal Stage Comments: Patient demonstrated vinay aspiration on thin and nectar thick liquids, as well as diffuse residue throughout pharyngeal cavity with these textures. With all other trials, no aspiration was seen, as well as reduced residue. Functionally, delay in swallow reflex seen, as well as reduced tongue base retraction and laryngeal elevation. - Impression/Summary Tracheal Aspiration: yes, cough, during swallow Patient Presents With: Pharyngeal stage dysph., Severe Risk of Aspiration: Severe - Recommendations Solid Diet Recommendations: Mechanical Soft, Ground Meat Liquid Diet Recommendations: Honey-Thick Strict Aspitarion Precautions: Yes Dysphagia Therapy with SECURITY STRATEGIST: Yes Recommended Techniques: Fully Upright During Meal, Small Bites and Sips Supervision: requires assistance - Time Total Time: 45 Total Timed Minutes: 45
--- NOTE | 2018-12-31 15:39 | RADIOLOGY REPORT (SQ) ---
EXAM DESCRIPTION: CHEST SINGLE VIEW COMPLETED DATE/TIME: 12/31/2018 3:24 pm REASON FOR STUDY: dyspnea COMPARISON: 12/29/2018 NUMBER OF VIEWS: One view. TECHNIQUE: Single frontal radiographic view of the chest acquired. LIMITATIONS: None. FINDINGS: LUNGS AND PLEURA: No opacities, masses or pneumothorax. No pleural effusion. MEDIASTINUM AND HILAR STRUCTURES: No masses. Contour normal. HEART AND VASCULAR STRUCTURES: Heart enlarged without failure. Normal vasculature. BONES: No acute findings. HARDWARE: None in the chest. OTHER: No other significant finding. IMPRESSION: HEART ENLARGED WITHOUT FAILURE. NO OTHER SIGNIFICANT RADIOGRAPHIC FINDING IN THE CHEST. TECHNICAL DOCUMENTATION: JOB ID: [id number] [employer]- All Rights Reserved Reading location - IP/workstation name: [email or web address]
--- NOTE | 2018-12-31 18:20 | PDOC PROGRESS REPORT ---
Subjective Progress Note for:: 12/31/18 Subjective:: MIS MCKEON is a 58 year old mandrin Polish speaking male with a past medical history of diabetes, hypertension, dyslipidemia and CVA with residual left-sided weakness admitted 12/29/2018 for acute right basal ganglia CVA with increased left-sided weakness, fatigue, and blurred vision. Patient was seen on afternoon rounds utilizing [employer] for translating services. Patient reports slight dyspnea today, denies cough except after drinking/eating. Pleased he was able to stand with physical therapy. Unfortunately, the remainder of our conversation was limited secondary to difficulty with [employer] services and the patient's slurred speech impairing the ability of the district administrative assistant to clearly translate. He does appear comfortable and is not noted to be in any acute distress at this time. No concerns per nursing. Reason For Visit: CVA Physical Exam Vital Signs: Temp Pulse Resp BP Pulse Ox 98.1 F 72 14 171/79 H 97 12/31/18 02:57 12/31/18 14:00 12/31/18 08:00 12/31/18 08:00 12/31/18 08:00 Intake & Output 12/30/18 12/31/18 01/01/19 06:59 06:59 06:59 Intake Total 2000 720 Output Total 325 Balance 1675 720 Weight 79.7 kg 80 kg General appearance: PRESENT: no acute distress, cooperative, well-developed, well-nourished - Overweight Head exam: PRESENT: atraumatic, normocephalic Eye exam: PRESENT: conjunctiva pink, EOMI, PERRLA. ABSENT: scleral icterus Ear exam: PRESENT: normal external ear exam Mouth exam: PRESENT: moist, tongue midline Neck exam: ABSENT: carotid bruit, JVD, lymphadenopathy, thyromegaly Respiratory exam: PRESENT: clear to auscultation shivani, symmetrical, unlabored. ABSENT: rales, rhonchi, wheezes Cardiovascular exam: PRESENT: RRR, +S1, +S2. ABSENT: diastolic murmur, rubs, systolic murmur Pulses: PRESENT: normal dorsalis pedis pul Vascular exam: PRESENT: normal capillary refill GI/Abdominal exam: PRESENT: normal bowel sounds, soft. ABSENT: distended, guarding, mass, organolmegaly, rebound, tenderness Rectal exam: PRESENT: deferred Extremities exam: ABSENT: calf tenderness, clubbing, pedal edema Neurological exam: PRESENT: alert, awake, oriented to person, oriented to place, oriented to situation, CN II-XII grossly intact, other - Alert and oriented, follows directions. LUE with flaccid paralysis, ribbon lapper tender strength 2/5, right ribbon lapper tender 4/5. Leg with equal bilaterally, dorsi flexion on left 4/5, 5/5 on right. ABSENT: oriented to time, motor sensory deficit Psychiatric exam: PRESENT: appropriate affect, normal mood Skin exam: PRESENT: dry, intact, warm. ABSENT: cyanosis, rash Results Laboratory Results: 12/29/18 16:00 12/29/18 16:00 12/29/18 12/29/18 16:00 19:30 Troponin I < 0.012 0.014 Impressions: Head MRI 12/29/18 00:00 IMPRESSION: 1. There is an acute diffusion restricting infarction of the posterior right basal ganglia involving the posterior limb of the right internal capsule and adjacent morales radiata (series 4, image 15). There may be an additional small subacute infarction of the right frontal morales radiata more anteriorly (series 4, image 20). 2. Examination is generally somewhat limited by patient motion artifact EVIDENCE OF ACUTE STROKE: YES. Head CT 12/29/18 16:23 IMPRESSION: Findings worrisome for acute or early subacute infarct in the right posterior limb internal capsule/posterior basal ganglia extending into the hemispheric white matter. Nonhemorrhagic. No mass effect. EVIDENCE OF ACUTE STROKE: YES. Carotid Doppler Study 12/29/18 20:07 IMPRESSION: NO HEMODYNAMICALLY SIGNIFICANT STENOSIS. Chest X-Ray 12/31/18 00:00 IMPRESSION: HEART ENLARGED WITHOUT FAILURE. NO OTHER SIGNIFICANT RADIOGRAPHIC FINDING IN THE CHEST. Modified Barium Swallow 12/31/18 00:00 IMPRESSION: RACHEL ASPIRATION SEEN WITH THIN AND NECTAR THICK CONSISTENCIES. PLEASE SEE SPEECH PATHOLOGIST REPORT FOR OTHER FINDINGS AND RECOMMENDATIONS. Assessment and Plan - Diagnosis (1) Stroke Qualifiers: CVA mechanism: unspecified Qualified Code(s): I63.9 - Cerebral infarction, unspecified Is this a current diagnosis for this admission?: Yes Plan: MRI confirms right basal ganglia acute CVA. CT demonstrated the above. Carotid Doppler is negative for hemodynamically significant stenosis. Echocardiogram Revealed LVEF of 50%, mild diastolic dysfunction, and no obvious cardiac source of embolus. Patient remains in normal sinus rhythm on telemetry. Continue atorvastatin 80 mg. Continue daily aspirin and Plavix therapy. Will increase lisinopril dose as blood pressures remain elevated; systolic 170s Increase diabetic glucose control. PT/OT/ST consulted. Modified barium swallow study completed today; recommend honey thickened liquids and pured diet. Aspiration precautions. Discharge planning consulted. Have discussed with discharge planning recommendations for acute rehabilitation services. (2) Hyperglycemia Is this a current diagnosis for this admission?: Yes Plan: A1c is 10.6%. Consistent carb diet. Continue home dose Farxiga. Lantus 10 units nightly Accu-Cheks before meals and at bedtime with Humalog for sliding scale coverage. Hypoglycemia protocol in place. (3) Dyslipidemia Is this a current diagnosis for this admission?: Yes Plan: Lipid panel shows HDL 29, LDL 202, triglycerides 410, total cholesterol 433. Continue atorvastatin 80 mg daily. (4) Tobacco abuse Is this a current diagnosis for this admission?: Yes Plan: Nicotine patch PRN (5) Pharyngeal dysphagia Is this a current diagnosis for this admission?: Yes Plan: Confirmed by modified barium swallow study. Speech therapy consulted. Recommends they can honey thickened liquids with mechanical soft/ground meats. Aspiration precautions - Time Time Spent with patient: 25-34 minutes Medications reviewed and adjusted accordingly: Yes Anticipated discharge: Acute Rehab Within: when bed available
[2018-12-31] MEDS: ATORVASTATIN CALCIUM 80 MG TABLET PO SCH (21:26)
[2018-12-31] MEDS ORDERED: INSULIN GLARGINE,HUM.REC.ANLOG 1,000 UNIT/10 ML VIAL SUBCUT SCH (22:00)
[2019-01-01] MEDS: HYDRALAZINE HCL INJ/PF 20 MG/1 ML SDV IV PRN ×2 (01:37→20:22)
[2019-01-01] MEDS: LEVOTHYROXINE SODIUM 0.075 MG TABLET PO SCH (05:43)
[2019-01-01] MEDS: GABAPENTIN 100 MG CAPSULE PO SCH ×3 (05:43→21:52)
[2019-01-01] MEDS: HEPARIN SOD (PORCINE) 5,000 UNIT/ML 1 ML VIAL SUBCUT SCH ×3 (05:43→21:52)
[2019-01-01] MEDS: MAGNESIUM HYDROXIDE SUSP 30 ML UDCUP PO PRN (05:48)
[2019-01-01 05:58] LABS: BLOOD UREA NITROGEN 27 mg/dL (7-20); CALCIUM 8.3 mg/dL (8.4-10.2); CHLORIDE 105 mmol/L (98-107)
[2019-01-01 06:05] LABS: CARBON DIOXIDE 24 mmol/L (22-30)
[2019-01-01 06:32] LABS: ANION GAP 5 (5-19); GLUCOSE 408 mg/dL (75-110)
[2019-01-01] MEDS ORDERED: INSULIN REG, HUMAN 100 UNIT/ML 3 ML VIAL (PYX) IV ONE (07:00)
[2019-01-01] MEDS: INSULIN LISPRO 100 UNIT/ML 3 ML VIAL SUBCUT SCH ×3 (09:38→17:35)
[2019-01-01] MEDS: ASPIRIN 81 MG TABLET, ENT COATED PO SCH (10:07)
[2019-01-01] MEDS: CLOPIDOGREL BISULFATE 75 MG TABLET PO SCH (10:07)
[2019-01-01] MEDS: LISINOPRIL 10 MG TABLET PO SCH (10:08)
--- NOTE | 2019-01-01 13:30 | PDOC CONSULTATION ---
Consultation-Blank Consultation: Physical Medicine & Rehabilitation Progress Note Chart reviewed and case discussed with acute care therapist as well as senior materials planner. 58-year-old right-handed male with history of prior CVA and residual left-sided weakness admitted [facility] on 12/29/2018 after presenting with increased left-sided weakness and being found to have a right basal ganglia CVA on MRI of the brain. He was admitted for stroke workup and found to have severely uncontrolled diabetes mellitus and hyperlipidemia. He is now on dual antiplatelet therapy and a statin for secondary stroke prophylaxis, and his hyperglycemia is being managed by Internal Medicine. He was evaluated by acute care physical therapy and occupational therapy, and he currently requires minimum assistance of 2 people for bed mobility and transfers as well as dependent assistance for upper and lower body dressing. Chart reviewed. 58-year-old right-handed male with history of prior CVA and residual left-sided weakness admitted [facility] on 12/29/2018 after presenting with increased left-sided weakness and being found to have a right basal ganglia CVA on MRI of the brain. He was admitted for stroke workup and found to have severely uncontrolled diabetes mellitus and hyperlipidemia. He is now on dual antiplatelet therapy and a statin for secondary stroke prophylaxis, and his hyperglycemia is being managed by Internal Medicine. He was evaluated by acute care physical therapy and occupational therapy, and he currently requires moderate assistance of 2 people for bed mobility and transfers as well as dependent assistance for upper and lower body dressing. He was evaluated by speech therapy, including a modified barium swallow study yesterday, and he is recommended a mechanical soft solids with honey thick liquids diet. He lives at home with his family. Based on the patient's diagnosis, medical co-morbidities, and current functional status, he is a good candidate for acute inpatient rehabilitation as he would benefit from 3 hours per day of intensive therapies in at least 2 disciplines under the close medical supervision of a physician. The patient is expected to make significant gains in a relatively short period of time to the point that he can safely be discharged home with supervision and assistance from family. Barring any unforeseen events or complications, there is a plan to admit the patient to acute inpatient rehabilitation [facility] 01/[facility]. The patient's nurse should call [phone] to give report prior to the patient's discharge Friday. supervisor sintering plant time is set for 10 AM.
--- NOTE | 2019-01-01 19:10 | PDOC PROGRESS REPORT ---
Subjective Progress Note for:: 01/01/19 Subjective:: MIS MCKEON is a 58 year old mandrin Norwegian speaking male with a past medical history of diabetes, hypertension, dyslipidemia and CVA with residual left-sided weakness admitted 12/29/2018 for acute right basal ganglia CVA with increased left-sided weakness, fatigue, and blurred vision. Patient was seen on afternoon rounds; while attempting to start [place] for transl ation services, patient emphatically shook his head no. Unfortunately, there were no family members present and so we had a very limited interaction today. He was able to participate in exam through mimicking/charades. He did use hand gestures to indicate that he was able to read the board today (hold up fingers to show me the phone number to the hospital); indicating that his blurred vision is improved. He does appear comfortable and is not noted to be in any acute distress at this time. ROS is otherwise limited. No concerns per nursing. Reason For Visit: CVA Physical Exam Vital Signs: Temp Pulse Resp BP Pulse Ox 98.0 F 75 18 162/91 H 97 01/01/19 10:58 01/01/19 14:00 01/01/19 10:58 01/01/19 10:58 01/01/19 10:58 Intake & Output 12/31/18 01/01/19 01/02/19 06:59 06:59 06:59 Intake Total 720 1050 480 Balance 720 1050 480 Weight 80 kg 83.6 kg General appearance: PRESENT: no acute distress, cooperative, well-developed, well-nourished - Overweight Head exam: PRESENT: atraumatic, normocephalic Eye exam: PRESENT: conjunctiva pink, EOMI, PERRLA. ABSENT: scleral icterus Ear exam: PRESENT: normal external ear exam Mouth exam: PRESENT: moist, tongue midline Respiratory exam: PRESENT: clear to auscultation shivani, symmetrical, unlabored, other - Room air. ABSENT: rales, rhonchi, wheezes Cardiovascular exam: PRESENT: RRR, +S1, +S2. ABSENT: diastolic murmur, rubs, systolic murmur Pulses: PRESENT: normal dorsalis pedis pul Vascular exam: PRESENT: normal capillary refill Extremities exam: ABSENT: calf tenderness, clubbing, pedal edema Neurological exam: PRESENT: alert, awake, oriented to person, oriented to place, oriented to time, oriented to situation, CN II-XII grossly intact, other - Alert and oriented, follows directions. LUE with flaccid paralysis, employee adviser strength 3/5, right employee adviser 4/5. Leg lift equal bilaterally (can raise foot off bed but not hold for more than a few seconds), dorsi flexion on left 4/5, 5/5 on right.. ABSENT: motor sensory deficit Psychiatric exam: PRESENT: appropriate affect, normal mood Skin exam: PRESENT: dry, intact, warm. ABSENT: cyanosis, rash Results Laboratory Results: 12/29/18 16:00 01/01/19 05:02 01/01/19 05:02 Sodium 133.7 L Potassium 4.0 Chloride 105 Carbon Dioxide 24 Anion Gap 5 BUN 27 H Creatinine 1.14 Est GFR ( Amer) > 60 Glucose 408 H* Calcium 8.3 L 12/29/18 12/29/18 16:00 19:30 Troponin I < 0.012 0.014 Impressions: Head MRI 12/29/18 00:00 IMPRESSION: 1. There is an acute diffusion restricting infarction of the poste rior right basal ganglia involving the posterior limb of the right internal capsule and adjacent morales radiata (series 4, image 15). There may be an additional small subacute infarction of the right frontal morales radiata more anteriorly (series 4, image 20). 2. Examination is generally somewhat limited by patient motion artifact EVIDENCE OF ACUTE STROKE: YES. Head CT 12/29/18 16:23 IMPRESSION: Findings worrisome for acute or early subacute infarct in the right posterior limb internal capsule/posterior basal ganglia extending into the hemispheric white matter. Nonhemorrhagic. No mass effect. EVIDENCE OF ACUTE STROKE: YES. Carotid Doppler Study 12/29/18 20:07 IMPRESSION: NO HEMODYNAMICALLY SIGNIFICANT STENOSIS. Chest X-Ray 12/31/18 00:00 IMPRESSION: HEART ENLARGED WITHOUT FAILURE. NO OTHER SIGNIFICANT RADIOGRAPHIC FINDING IN THE CHEST. Modified Barium Swallow 12/31/18 00:00 IMPRESSION: RACHEL ASPIRATION SEEN WITH THIN AND NECTAR THICK CONSISTENCIES. PLEASE SEE SPEECH PATHOLOGIST REPORT FOR OTHER FINDINGS AND RECOMMENDATIONS. Assessment and Plan - Diagnosis (1) Stroke Qualifiers: CVA mechanism: unspecified Qualified Code(s): I63.9 - Cerebral infarction, unspecified Is this a current diagnosis for this admission?: Yes Plan: MRI confirms right basal ganglia acute CVA. CT demonstrated the above. Carotid Doppler is negative for hemodynamically significant stenosis. Echocardiogram Revealed LVEF of 50%, mild diastolic dysfunction, and no obvious cardiac source of embolus. Patient remains in normal sinus rhythm on telemetry. Continue atorvastatin 80 mg. Continue daily aspirin and Plavix therapy. Beginning efforts to obtain improved blood pressure control. Increase diabetic glucose control. PT/OT/ST consulted. Modified barium swallow study completed; recommend honey thickened liquids and pured diet. Aspiration precautions. Discharge planning consulted. Have discussed with discharge planning recommendations for acute rehabilitation services. (2) Dyslipidemia Is this a current diagnosis for this admission?: Yes Plan: Lipid panel shows HDL 29, LDL 202, triglycerides 410, total cholesterol 433. Continue atorvastatin 80 mg daily. (3) Pharyngeal dysphagia Is this a current diagnosis for this admission?: Yes Plan: Confirmed by modified barium swallow study. Speech therapy consulted. Recommends they can honey thickened liquids with mechanical soft/ground meats. Aspiration precautions (4) Hypertension Is this a current diagnosis for this admission?: Yes Plan: Continue lisinopril 20 mg daily. We will add Norvasc 5 mg nightly. Cardiac diet (5) Diabetes Qualifiers: Diabetes mellitus type: type 2 Diabetes mellitus fci insulin use: with tank terminal gauger use Is this a current diagnosis for this admission?: Yes Plan: A1c is 10.6%. Consistent carb diet. Continue home dose Farxiga. Lantus 14 units nightly Accu-Cheks before meals and at bedtime with Humalog for sliding scale coverage. Hypoglycemia protocol in place. Patient's family requesting transition to 7030 prior to discharge due to financial barriers. (6) Hyperglycemia Is this a current diagnosis for this admission?: Yes Plan: As above. (7) Tobacco abuse Is this a current diagnosis for this admission?: Yes Plan: Nicotine patch PRN - Time Time Spent with patient: 15-24 minutes Medications reviewed and adjusted accordingly: Yes Anticipated discharge: Acute Rehab Within: Other - 01/04/19
[2019-01-01] MEDS: ATORVASTATIN CALCIUM 80 MG TABLET PO SCH (21:52)
[2019-01-01] MEDS ORDERED: AMLODIPINE BESYLATE 5 MG TABLET PO SCH (22:00)
[2019-01-01] MEDS ORDERED: INSULIN GLARGINE,HUM.REC.ANLOG 1,000 UNIT/10 ML VIAL SUBCUT SCH (22:00)
[2019-01-02] MEDS: LEVOTHYROXINE SODIUM 0.075 MG TABLET PO SCH (05:10)
[2019-01-02] MEDS: GABAPENTIN 100 MG CAPSULE PO SCH ×3 (05:10→22:02)
[2019-01-02] MEDS: HEPARIN SOD (PORCINE) 5,000 UNIT/ML 1 ML VIAL SUBCUT SCH ×3 (05:10→22:02)
[2019-01-02] MEDS ORDERED: HUM INSULIN NPH/REG INSULIN HM 100 UNIT/1 ML 3 ML SUBCUT SCH ×3 (08:00→16:00)
[2019-01-02] MEDS ORDERED: HUM INSULIN NPH/REG INSULIN HM 100 UNIT/1 ML 3 ML SUBCUT ONE (08:00)
[2019-01-02] MEDS: ASPIRIN 81 MG TABLET, ENT COATED PO SCH (10:44)
[2019-01-02] MEDS: CLOPIDOGREL BISULFATE 75 MG TABLET PO SCH (10:44)
[2019-01-02] MEDS: LISINOPRIL 10 MG TABLET PO SCH (10:44)
[2019-01-02] MEDS: HYDRALAZINE HCL INJ/PF 20 MG/1 ML SDV IV PRN (11:50)
--- NOTE | 2019-01-02 13:09 | PDOC PROGRESS REPORT ---
Subjective Progress Note for:: 01/02/19 Subjective:: MIS MCKENO is a 58 year old mandrin [place]an speaking male with a past medical history of diabetes, hypertension, dyslipidemia and CVA with residual left-sided weakness admitted 12/29/2018 for acute right basal ganglia CVA with increased left-sided weakness, fatigue, and blurred vision. Patient was seen on morning rounds; no family present at this time. Limited dis cussion today using a phone building serviceman calixto as patient again shook his head no when I turned on the TAMIKO. He was noted to use his left hand to swipe on his phone while showing me pictures. He denies headache, chest pain, or shortness of breath. He smiled and gave me a thumbs up when I told him that he was going to a physical therapy hospital on Friday. He told me that he was able to stand but not yet walk. He then used the calixto to teach me how to say hello, thank you, and good bye. He appeared to be in good spirits today. Communication and ROS was otherwise limited secondary to language barrier. He is comfortable and is not noted to be in any acute distress at this time. Nursing reports elevated BP. No other concerns. Reason For Visit: CVA Physical Exam Vital Signs: Temp Pulse Resp BP Pulse Ox 97.5 F 81 17 220/84 H 97 01/02/19 11:43 01/02/19 11:43 01/02/19 11:43 01/02/19 11:43 01/02/19 11:43 Intake & Output 01/01/19 01/02/19 01/03/19 06:59 06:59 06:59 Intake Total 1050 740 Balance 1050 740 Weight 83.6 kg 79.7 kg General appearance: PRESENT: no acute distress, cooperative, well-developed, well-nourished - overweight Head exam: PRESENT: atraumatic, normocephalic Eye exam: PRESENT: conjunctiva pink, EOMI, PERRLA. ABSENT: scleral icterus Ear exam: PRESENT: normal external ear exam Mouth exam: PRESENT: moist, tongue midline Respiratory exam: PRESENT: clear to auscultation shivani, symmetrical, unlabored. ABSENT: rales, rhonchi, wheezes Cardiovascular exam: PRESENT: RRR, +S1, +S2. ABSENT: diastolic murmur, rubs, systolic murmur Vascular exam: PRESENT: normal capillary refill Extremities exam: ABSENT: calf tenderness, clubbing, pedal edema Neurological exam: PRESENT: alert, awake, oriented to person, oriented to place, oriented to time, oriented to situation, CN II-XII grossly intact, other - Using left hand to hold phone and swipe through pictures. L generation technician strength 4/5, right generation technician 5/5. Dorsi flexion on left 4/5, 5/5 on right. ABSENT: motor sensory deficit Psychiatric exam: PRESENT: appropriate affect, normal mood. ABSENT: homicidal ideation, suicidal ideation Skin exam: PRESENT: dry, intact, warm. ABSENT: cyanosis, rash Results Laboratory Results: 12/29/18 16:00 11 05:02 12/29/18 12/29/18 16:00 19:30 Troponin I < 0.012 0.014 Impressions: Head MRI 12/29/18 00:00 IMPRESSION: 1. There is an acute diffusion restricting infarction of the p osterior right basal ganglia involving the posterior limb of the right internal capsule and adjacent morales radiata (series 4, image 15). There may be an additional small subacute infarction of the right frontal morales radiata more anteriorly (series 4, image 20). 2. Examination is generally somewhat limited by patient motion artifact EVIDENCE OF ACUTE STROKE: YES. Head CT 12/29/18 16:23 IMPRESSION: Findings worrisome for acute or early subacute infarct in the right posterior limb internal capsule/posterior basal ganglia extending into the hemispheric white matter. Nonhemorrhagic. No mass effect. EVIDENCE OF ACUTE STROKE: YES. Carotid Doppler Study 12/29/18 20:07 IMPRESSION: NO HEMODYNAMICALLY SIGNIFICANT STENOSIS. Chest X-Ray 12/31/18 00:00 IMPRESSION: HEART ENLARGED WITHOUT FAILURE. NO OTHER SIGNIFICANT RADIOGRAPHIC FINDING IN THE CHEST. Modified Barium Swallow 12/31/18 00:00 IMPRESSION: RACHEL ASPIRATION SEEN WITH THIN AND NECTAR THICK CONSISTENCIES. PLEASE SEE SPEECH PATHOLOGIST REPORT FOR OTHER FINDINGS AND RECOMMENDATIONS. Assessment and Plan - Diagnosis (1) Stroke Qualifiers: CVA mechanism: unspecified Qualified Code(s): I63.9 - Cerebral infarction, unspecified Is this a current diagnosis for this admission?: Yes Plan: MRI confirms right basal ganglia acute CVA. CT demonstrated the above. Carotid Doppler is negative for hemodynamically significant stenosis. Echocardiogram Revealed LVEF of 50%, mild diastolic dysfunction, and no obvious cardiac source of embolus. Patient remains in normal sinus rhythm on telemetry. Continue atorvastatin 80 mg. Continue daily aspirin and Plavix therapy. Continued efforts to obtain improved blood pressure control. Increase diabetic glucose control. PT/OT/ST consulted. Modified barium swallow study completed; recommend honey thickened liquids and pured diet. Aspiration precautions. Discharge planning consulted. Patient has been accepted to [facility]. (2) Dyslipidemia Is this a current diagnosis for this admission?: Yes Plan: Lipid panel shows HDL 29, LDL 202, triglycerides 410, total cholesterol 433. Continue atorvastatin 80 mg daily. (3) Pharyngeal dysphagia Is this a current diagnosis for this admission?: Yes Plan: Confirmed by modified barium swallow study. Speech therapy consulted. Recommends they can honey thickened liquids with mechanical soft/ground meats. Aspiration precautions (4) Hypertension Is this a current diagnosis for this admission?: Yes Plan: Increase lisinopril to 40 mg daily. Increase Norvasc 5 mg to BID IV hydralazine as needed for blood pressure control. Consider beta-renzo. Cardiac diet (5) Diabetes Qualifiers: Diabetes mellitus type: type 2 Diabetes mellitus penitentiary insulin use: with intermediate project manager use Is this a current diagnosis for this admission?: Yes Plan: A1c is 10.6%. Consistent carb diet. Continue home dose Farxiga. Accu-Cheks before meals and at bedtime Hypoglycemia protocol in place. Patient's family requesting transition to 70/30 prior to discharge due to financial barriers. Have started 70/30; 26 units before breakfast and 14 units before dinner. (6) Hyperglycemia Is this a current diagnosis for this admission?: Yes Plan: As above. (7) Tobacco abuse Is this a current diagnosis for this admission?: Yes Plan: Nicotine patch PRN - Time Time Spent with patient: 25-34 minutes Medications reviewed and adjusted accordingly: Yes Anticipated discharge: Acute Rehab Within: Other - 01/04/19
[2019-01-02] MEDS ORDERED: LISINOPRIL 10 MG TABLET PO ONE (13:15)
[2019-01-02] MEDS ORDERED: AMLODIPINE BESYLATE 5 MG TABLET PO ONE (13:15)
[2019-01-02] MEDS: AMLODIPINE BESYLATE 5 MG TABLET PO SCH (22:01)
[2019-01-02] MEDS: ATORVASTATIN CALCIUM 80 MG TABLET PO SCH (22:02)
[2019-01-03 05:01] LABS: HEMATOCRIT 37.5 % (37.9-51.0); HEMOGLOBIN 13.1 g/dL (13.5-17.0); MEAN CORPUSCULAR HEMOGLOBIN 29.3 pg (27.0-33.4); MEAN CORPUSCULAR VOLUME 84 fl (80-97); PLATELET COUNT 167 10^3/uL (150-450); RED BLOOD COUNT 4.48 10^6/uL (4.35-5.55); WHITE BLOOD COUNT 5.5 10^3/uL (4.0-10.5)
[2019-01-03] MEDS: GABAPENTIN 100 MG CAPSULE PO SCH ×3 (05:13→22:22)
[2019-01-03] MEDS: LEVOTHYROXINE SODIUM 0.075 MG TABLET PO SCH (05:13)
[2019-01-03] MEDS: HEPARIN SOD (PORCINE) 5,000 UNIT/ML 1 ML VIAL SUBCUT SCH ×3 (05:14→22:23)
[2019-01-03 05:21] LABS: ANION GAP 6 (5-19); BLOOD UREA NITROGEN 30 mg/dL (7-20); CALCIUM 8.4 mg/dL (8.4-10.2); CARBON DIOXIDE 24 mmol/L (22-30); CHLORIDE 106 mmol/L (98-107); GLUCOSE 353 mg/dL (75-110); POTASSIUM 3.7 mmol/L (3.6-5.0)
[2019-01-03] MEDS: HUM INSULIN NPH/REG INSULIN HM 100 UNIT/1 ML 3 ML SUBCUT SCH (08:09)
[2019-01-03] MEDS: AMLODIPINE BESYLATE 5 MG TABLET PO SCH ×2 (09:59→22:24)
[2019-01-03] MEDS: CLOPIDOGREL BISULFATE 75 MG TABLET PO SCH (10:00)
[2019-01-03] MEDS: CARVEDILOL 6.25 MG TABLET PO SCH ×2 (10:00→22:22)
[2019-01-03] MEDS ORDERED: LISINOPRIL 10 MG TABLET PO SCH (10:00)
[2019-01-03] MEDS: ASPIRIN 81 MG TABLET, ENT COATED PO SCH (10:00)
--- NOTE | 2019-01-03 11:38 | PDOC TRANSFER SUMMARY ---
General Admission Date/PCP: 12/29/18 20:20 RICARDO FUENTES MD Admission Date: 12/29/18 Transfer Date: 01/04/19 Accepting Facility: [facility] Resuscitation Status: Full Code - Transfer Diagnosis (1) Stroke Is this a current diagnosis for this admission?: Yes Diagnosis Summary: MRI confirms right basal ganglia acute CVA. CT demonstrated the above. Carotid Doppler is negative for hemodynamically significant stenosis. Echocardiogram Revealed LVEF of 50%, mild diastolic dysfunction, and no obvious cardiac source of embolus. Patient remains in normal sinus rhythm on telemetry. The patient has been placed on daily aspirin, Plavix, and statin therapy. Efforts to obtain improved blood pressure and glucose control are ongoing. He w ill require additional insulin adjustments; family members are requesting 70/30 due to financial restraints. He does remain hypertensive, though with improved control, while on lisinopril, amlodipine, and carvedilol. Speech therapy has met with the patient and conducted a modified barium swallow study; recommend honey thickened liquids with pured diet and strict aspiration precautions. PT/OT have been consulted and recommend continued acute rehabilitation. Fortunately, Dr. Sinclair has been able to provide a bed offer to [facility] with plan to transport to their facility early tomorrow morning, 01/04/2019. (2) Dyslipidemia Is this a current diagnosis for this admission?: Yes Diagnosis Summary: Lipid panel shows HDL 29, LDL 202, triglycerides 410, total cholesterol 433. Discharged on atorvastatin 80 mg daily. (3) Pharyngeal dysphagia Is this a current diagnosis for this admission?: Yes Diagnosis Summary: Confirmed by modified barium swallow study. Speech therapy consulted. Recommends they can honey thickened liquids with mechanical soft/ground meats. Aspiration precautions (4) Hypertension Is this a current diagnosis for this admission?: Yes Diagnosis Summary: Improved blood pressure control on lisinopril 40 mg daily, amlodipine 5 mg twice daily, carvedilol 6.125 mg twice daily. Patient is on a cardiac diet. He will require continued monitoring and dose adjustments for improved control. (5) Diabetes Is this a current diagnosis for this admission?: Yes Diagnosis Summary: A1c is 10.6%. Consistent carb diet. Continue home dose Farxiga. Accu-Cheks before meals and at bedtime Patient's family requesting transition to 70/30 prior to discharge due to financial barriers. Currently on 70/30; 28 units before breakfast and 16 units before dinner. Patient continues to have hyperglycemia in the 300s; will continue to require monitoring and dose adjustments. Hypoglycemia protocol in place. (6) Hyperglycemia Is this a current diagnosis for this admission?: Yes Diagnosis Summary: As above. (7) Tobacco abuse Is this a current diagnosis for this admission?: Yes Diagnosis Summary: Smoking cessation strongly encouraged - Transfer Medications Home Medications: Dapagliflozin Propanediol [Farxiga] 5 mg PO DAILY 12/29/18 Gabapentin [Neurontin 100 mg Capsule] 100 mg PO Q8 12/29/18 Levothyroxine Sodium [Synthroid 0.075 mg Tablet] 0.075 mg PO Q6AM 12/29/18 Transfer Medications: Current Medications Acetaminophen (Tylenol 325 Mg Tablet) 650 mg PO Q4HP PRN PRN Reason: Temp greater than 101F Stop: 01/28/19 20:05 Last Admin: 12/31/18 21:32 Dose: 650 mg Documented by: Amlodipine Besylate (Norvasc 5 Mg Tablet) 5 mg PO Q12 TRINY Stop: 02/01/19 21:59 Last Admin: 01/03/19 09:59 Dose: 5 mg Documented by: Artificial Tears (Refresh Plus 0.5% Oph Soln 0.4 Ml Droperette) 1 drop OU QIDP PRN PRN Reason: DRY EYE(S) Stop: 01/29/19 19:36 Aspirin (Ecotrin 81 Mg Ec Tablet) 81 mg PO DAILY TRINY Stop: 01/29/19 11:59 Last Admin: 01/03/19 10:00 Dose: 81 mg Documented by: Atorvastatin Calcium (Lipitor 80 Mg Tablet) 80 mg PO QHS TRINY Stop: 01/29/19 21:59 Last Admin: 01/02/19 22:02 Dose: 80 mg Documented by: Carvedilol (Coreg 6.25 Mg Tablet) 6.25 mg PO Q12 TRINY Stop: 02/02/19 09:59 Last Admin: 01/03/19 10:00 Dose: 6.25 mg Documented by: Clopidogrel Bisulfate (Plavix 75 Mg Tablet) 75 mg PO DAILY TRINY Stop: 01/30/19 09:59 Last Admin: 01/03/19 10:00 Dose: 75 mg Documented by: Dextrose (Dextrose Inj 50% Syringe (25 Gm/50 Ml)) 12.5 gm IV PRN PRN; Protocol PRN Reason: FOR BG 50-69 IN ALERT PATIENT Stop: 01/28/19 20:04 Dextrose (Dextrose Inj 50% Syringe (25 Gm/50 Ml)) 25 gm IV PRN PRN; Protocol PRN Reason: PER PROTOCOL Stop: 01/28/19 20:04 Docusate Sodium (Colace 100 Mg Capsule) 100 mg PO BIDP PRN PRN Reason: FOR CONSTIPATION Stop: 01/28/19 20:05 Last Admin: 12/31/18 00:43 Dose: 100 mg Documented by: Gabapentin (Neurontin 100 Mg Capsule) 100 mg PO Q8 [facility] Stop: 01/29/19 13:59 Last Admin: 01/03/19 05:13 Dose: 100 mg Documented by: Glucagon (Glucagen Inj 1 Mg Vial) 1 mg IM PRN PRN; Protocol PRN Reason: Evaluate for BG < 70 Stop: 01/28/19 20:04 Glucose (Glutose 40% Gel 15 Gm Tube) 15 gm PO PRN PRN; Protocol PRN Reason: FOR BG 50-69 IN ALERT PATIENT Stop: 01/28/19 20:04 Glucose (Glutose 40% Gel 15 Gm Tube) 30 gm PO PRN PRN; Protocol PRN Reason: FOR BG < 50 IN ALERT PATIENT Stop: 01/28/19 20:04 Heparin Sodium (Porcine) (Heparin Inj 5,000 Units/Ml 1 Ml Vial) 5,000 unit SUBCUT Q8 [facility] Stop: 01/28/19 21:59 Last Admin: 01/03/19 05:14 Dose: 5,000 unit Documented by: Hydralazine HCl (Apresoline Inj/Pf 20 Mg/1 Ml Sdv) 10 mg IV Q4HP PRN PRN Reason: SBP ABOVE 200 Stop: 01/28/19 23:53 Last Admin: 01/02/19 11:50 Dose: 10 mg Documented by: Insulin Human Isoph/Insulin Regular (Insulin Inj 70-30 (100 Unit/1 Ml) 3 Ml Vial) 28 unit SUBCUT ACBRKFST [facility] Stop: 02/02/19 07:59 Last Admin: 01/03/19 08:09 Dose: 28 unit Documented by: Insulin Human Isoph/Insulin Regular (Insulin Inj 70-30 (100 Unit/1 Ml) 3 Ml Vial) 16 unit SUBCUT ACSUPPER [facility] Stop: 02/02/19 15:59 Levothyroxine Sodium (Synthroid 0.075 Mg Tablet) 0.075 mg PO Q6AM TRIYN Stop: 01/30/19 05:59 Last Admin: 01/03/19 05:13 Dose: 0.075 mg Documented by: Lisinopril (Prinivil 10 Mg Tablet) 40 mg PO DAILY TRINY Stop: 02/02/19 09:59 Last Admin: 01/03/19 10:00 Dose: 40 mg Documented by: Magnesium Hydroxide (Milk Of Magnesia 30 Ml Udcup) 30 ml PO BIDP PRN PRN Reason: FOR CONSTIPATION Stop: 01/30/19 08:19 Last Admin: 01/01/19 05:48 Dose: 30 ml Documented by: Patient Own Medication (Dapagliflozin Propanediol [Farxiga]) 5 mg PO .DAILY TRINY Stop: 01/30/19 09:59 Sodium Chloride (Saline Flush 2.5 Ml Monoject Prefil Syrin) 2.5 ml IV Q8 TRINY Stop: 01/28/19 21:59 Last Admin: 01/03/19 05:14 Dose: 2.5 ml Documented by: - Allergies Allergies/Adverse Reactions: No Known Allergies Allergy (Unverified 10/13/14 20:44) - Diet/Activity Discharge Diet: Cardiac, Diabetic Hospital Course Hospital Course: H&P per Dr. Grant: MIS MCKEON is a 58 year old mandrin Norwegian speaking male with a past medical history of diabetes, hypertension, dyslipidemia and CVA with residual left-sided weakness. He presents with over 12 hours of increased left-sided weakness from baseline and a cough while eating or drinking. Patient's daughter is at bedside who translates and verifies he is essentially bedbound over the last 2 years able to transfer from bed to commode with baseline debility. No recent change in medications, palpitations nausea or vomiting but has had several days of headache. Hospital course as above. Physical Exam Vital Signs: Temp Pulse Resp BP Pulse Ox 97.3 F 76 17 159/82 H 96 01/03/19 08:00 01/03/19 08:00 01/03/19 08:00 01/03/19 08:00 01/03/19 08:00 Intake & Output 01/02/19 01/03/19 01/04/19 06:59 06:59 06:59 Intake Total 740 200 Balance 740 200 Weight 79.7 kg 85.2 kg General appearance: PRESENT: no acute distress, cooperative, well-developed, well-nourished - Overweight Head exam: PRESENT: atraumatic, normocephalic Eye exam: PRESENT: conjunctiva pink, EOMI, PERRLA. ABSENT: scleral icterus Ear exam: PRESENT: normal external ear exam Mouth exam: PRESENT: moist, tongue midline Neck exam: ABSENT: carotid bruit, JVD, lymphadenopathy, thyromegaly Respiratory exam: PRESENT: clear to auscultation shivani, symmetrical, unlabored. ABSENT: rales, rhonchi, wheezes Cardiovascular exam: PRESENT: RRR, +S1, +S2. ABSENT: diastolic murmur, rubs, systolic murmur Pulses: PRESENT: normal dorsalis pedis pul Vascular exam: PRESENT: normal capillary refill GI/Abdominal exam: PRESENT: normal bowel sounds, soft. ABSENT: distended, guarding, mass, organolmegaly, rebound, tenderness Rectal exam: PRESENT: deferred Extremities exam: PRESENT: full ROM - Moves all extremities spontaneously; poor coordination with left upper extremity and bilateral lower extremities. ABSENT: calf tenderness, clubbing, pedal edema Neurological exam: PRESENT: alert, awake, oriented to person, oriented to place, oriented to time, oriented to situation, CN II-XII grossly intact, other - Improved. Left drill operator pneumatic strength 4/5, right drill operator pneumatic 5/5. Dorsi flexion on left 4/5, 5/5 on right. Remains uncoordinated. Exam somewhat limited secondary to language barrier. Continued slurred speech per sand analyst.. ABSENT: motor sensory deficit Psychiatric exam: PRESENT: appropriate affect, normal mood. ABSENT: homicidal ideation, suicidal ideation Skin exam: PRESENT: dry, intact, warm. ABSENT: cyanosis, rash Results Laboratory Results: 01/03/19 04:20 01/03/19 04:20 01/03/19 01/03/19 04:20 04:20 WBC 5.5 RBC 4.48 Hgb 13.1 L Hct 37.5 L MCV 84 MCH 29.3 MCHC 35.0 RDW 14.0 Plt Count 167 Sodium 136.4 L Potassium 3.7 Chloride 106 Carbon Dioxide 24 Anion Gap 6 BUN 30 H Creatinine 1.22 Est GFR ( Amer) > 60 Glucose 353 H Calcium 8.4 12/29/18 12/29/18 16:00 19:30 Troponin I < 0.012 0.014 Impressions: Head MRI 12/29/18 00:00 IMPRESSION: 1. There is an acute diffusion restricting infarction of the posterior right basal ganglia involving the posterior limb of the right internal capsule and adjacent morales radiata (series 4, image 15). There may be an addit ional small subacute infarction of the right frontal morales radiata more anteriorly (series 4, image 20). 2. Examination is generally somewhat limited by patient motion artifact EVIDENCE OF ACUTE STROKE: YES. Head CT 12/29/18 16:23 IMPRESSION: Findings worrisome for acute or early subacute infarct in the right posterior limb internal capsule/posterior basal ganglia extending into the hemispheric white matter. Nonhemorrhagic. No mass effect. EVIDENCE OF ACUTE STROKE: YES. Carotid Doppler Study 12/29/18 20:07 IMPRESSION: NO HEMODYNAMICALLY SIGNIFICANT STENOSIS. Chest X-Ray 12/31/18 00:00 IMPRESSION: HEART ENLARGED WITHOUT FAILURE. NO OTHER SIGNIFICANT RADIOGRAPHIC FINDING IN THE CHEST. Modified Barium Swallow 12/31/18 00:00 IMPRESSION: RACHEL ASPIRATION SEEN WITH THIN AND NECTAR THICK CONSISTENCIES. PLEASE SEE SPEECH PATHOLOGIST REPORT FOR OTHER FINDINGS AND RECOMMENDATIONS. Plan Discharge Plan: Transferred to [facility]. Time Spent: Greater than 30 Minutes
[2019-01-03] MEDS ORDERED: MECLIZINE HCL 12.5 MG TABLET PO PRN (12:55)
[2019-01-03] MEDS: MAGNESIUM HYDROXIDE SUSP 30 ML UDCUP PO PRN (13:05)
[2019-01-03] MEDS ORDERED: HUM INSULIN NPH/REG INSULIN HM 100 UNIT/1 ML 3 ML SUBCUT SCH (16:00)
[2019-01-03] MEDS: ATORVASTATIN CALCIUM 80 MG TABLET PO SCH (22:22)
[2019-01-03] MEDS: INSULIN LISPRO 100 UNIT/ML 3 ML VIAL SUBCUT SCH (22:37)
[2019-01-04] MEDS: GABAPENTIN 100 MG CAPSULE PO SCH (06:22)
[2019-01-04] MEDS: LEVOTHYROXINE SODIUM 0.075 MG TABLET PO SCH (06:22)
[2019-01-04] MEDS: HEPARIN SOD (PORCINE) 5,000 UNIT/ML 1 ML VIAL SUBCUT SCH (06:22)
[2019-01-04 08:34] VITALS: BP 111/48
[2019-01-04] MEDS: HUM INSULIN NPH/REG INSULIN HM 100 UNIT/1 ML 3 ML SUBCUT SCH (08:34)
[2019-01-04] MEDS: INSULIN LISPRO 100 UNIT/ML 3 ML VIAL SUBCUT SCH (08:35)
[2019-01-04] MEDS ORDERED: DOCUSATE SODIUM 100 MG CAPSULE PO SCH (10:00)
== END 2019-01-04 09:23 | disposition short-term general hospital (02) | DRG 65 ==
LOC: ER 15:27 → EH 20:20 → 3W 23:11
PROVIDERS: ADMIT Internal Medicine; ATTEND Internal Medicine
DX: I63.81 Other cerebral infarction due to occlusion or stenosis of small artery (principal); I69.854 Hemiplegia and hemiparesis following other cerebrovascular disease affecting left non-dominant side; I10 Essential (primary) hypertension; E78.5 Hyperlipidemia, unspecified; R13.13 Dysphagia, pharyngeal phase; E11.65 Type 2 diabetes mellitus with hyperglycemia; F17.210 Nicotine dependence, cigarettes, uncomplicated; H53.8 Other visual disturbances; Z59.9 Problem related to housing and economic circumstances, unspecified; Z79.899 Other long term (current) drug therapy; Z74.01 Bed confinement status; Z79.4 Long term (current) use of insulin; Z82.49 Family history of ischemic heart disease and other diseases of the circulatory system
CPT/HCPCS: 36415; 70450; 70551; 71045; 71046; 74230; 80048; 80053; 80061; 81001; 82803; 82962; 83036; 83735; 84100; 84484; 85025; 85027; 93005; 93010; 93306; 93880; 96360; 99285; J0360; J1644; J1815; J3490; J7030